=== PATIENT | female | born 1950 | race Caucasian/White ===

== ENCOUNTER 2018-08-13 05:49 | Emergency (ER) | payer MEDICARE, BC ==
[~2018-08-13] VITALS: Ht 157.5 cm; Wt 60.0 kg
[~2018-08-13 05:49] MED LIST: ALPR-304 PO; FISH OIL; HYDR12.5 PO; MULT-785 PO; VAL2T PO; VITAMIN D 3
[2018-08-13 06:41] LABS: CLARITY,URINE SLIGHTLY CLOUDY (Clear); COLOR,URINE YELLOW (Yellow); GLUCOSE, URINE NEGATIVE (Neg); KETONES,URINE NEGATIVE (Neg); LEUKOCYTE ESTERASE ,URINE NEGATIVE (Neg); NITRITES, URINE NEGATIVE (Neg); OCCULT BLOOD,URINE MODERATE (Neg); PH,URINE 6.5 (4.8-8.0); PROTEIN,URINE TRACE mg/dl (Neg); UROBILINOGEN,URINE 0.2 E.U/dL (0.2-1.0)
[2018-08-13 06:47] LABS: UA COLLECTION TYPE CLN CATCH MIDSTREAM
[2018-08-13 06:48] LABS: AMORPHOUS URATES 1+; BACTERIA,URINE NONE SEEN /HPF (Neg); MUCUS STRANDS MODERATE /LPF (Neg); RBC,URINE 0-2 /HPF (0-2); SQUAMOUS EPITHELIAL CELL,UR FEW /LPF (FEW); WBC,URINE 0-4 /HPF (0-4)
[2018-08-13 07:02] LABS: BASOPHILS % (AUTO) 0.3 % (0-1); EOSINOPHILS # (AUTO) 0.1 X10'3 (0-0.9); EOSINOPHILS % (AUTO) 0.6 % (0-6); HEMATOCRIT 43.5 % (35.0-45.0); HEMOGLOBIN 14.7 g/dl (12.0-16.0); LYMPHOCYTES # (AUTO) 1.6 X10'3 (1.1-4.8); LYMPHOCYTES % (AUTO) 14.4 % (21-51); MEAN CORPUSCULAR HEMOGLOBIN 32.1 PG (27.0-31.0); MEAN CORPUSCULAR HGB CONC 33.8 g/dL (33.0-36.5); MEAN CORPUSCULAR VOLUME 94.9 FL (78-98); MEAN PLATELET VOLUME 8.5 FL (7.4-10.4); MONOCYTES # (AUTO) 0.5 X10'3 (0-0.9); MONOCYTES % (AUTO) 4.4 % (2-12); NEUTROPHILS % (AUTO) 80.3 % (42-75); PLATELET COUNT 243 X10'3 (140-440); RED BLOOD COUNT 4.58 X10'6 (4.20-5.60); RED CELL DISTRIBUTION WIDTH 14.5 % (11.5-14.5); WHITE BLOOD COUNT 11.2 X10'3 (4.5-11.0)
[2018-08-13 07:08] LABS: ALANINE AMINOTRANSFERASE 38 U/L (12-78); ALBUMIN 4.4 G/DL (3.4-5.0); ALBUMIN/GLOBULIN RATIO 1.2 (1.1-1.5); ALKALINE PHOSPHATASE 65 IU/L (46-116); ANION GAP 10 (8-16); ASPARTATE AMINO TRANSFERASE 32 U/L (10-37); BILIRUBIN,TOTAL 1.6 MG/DL (0.1-1.0); BLOOD UREA NITROGEN 18 MG/DL (7-18); BUN/CREATININE RATIO 22.8 (6.6-38.0); CALCIUM 9.5 MG/DL (8.5-10.1); CHLORIDE 103 MMOL/L (99-107); CREATININE 0.79 MG/DL (0.40-0.90); GLUCOSE 146 MG/DL (70-104); LIPASE 179 U/L (73-393); POTASSIUM 3.7 MMOL/L (3.5-5.1); SODIUM 140 MMOL/L (135-145); TOTAL CARBON DIOXIDE 26.9 MMOL/L (24-32); eGFR 73 ML/MIN
[2018-08-13] MEDS: diatr meglu/diatrizoate 30ml oral sol.-(3 dose) bottle PO SCH ×3 (09:03→10:10)
[2018-08-13] MEDS ORDERED: iohexol 300mg/ml 100ml inj. ONE (10:30)
--- NOTE | 2018-08-13 10:59 | NUR ---
PT. GOING TO CT VIA W/C WITH OPERATIONS SECTION MANAGER
--- NOTE | 2018-08-13 11:30 | NUR ---
PT. BACK FROM CT WITH MOVEMENT THERAPIST
[2018-08-13] MEDS ORDERED: GLUC-219 PO (12:31)
[2018-08-13] MEDS ORDERED: VIT-11 PO (12:35)
[2018-08-13] MEDS ORDERED: THIO300C PO (12:35)
[2018-08-13] MEDS ORDERED: CALCIUM PO (12:35)
[2018-08-13] MEDS ORDERED: [UNRECOGNIZED DRUG - OTHER] (12:35)
[2018-08-13] MEDS ORDERED: RESV1TAB2 PO (12:35)
[2018-08-13] MEDS ORDERED: PROM12.512 PO (14:30)
[2018-08-13 15:07] VITALS: BP 113/66
== END 2018-08-13 15:09 | disposition home or self-care (01) ==
LOC: ER 06:03
DX: K56.7 Ileus, unspecified (principal); R11.2 Nausea with vomiting, unspecified; Z88.1 Allergy status to other antibiotic agents; Z79.899 Other long term (current) drug therapy; Z98.890 Other specified postprocedural states
CPT/HCPCS: 36415; 74018; 74177; 80053; 81001; 82948; 83690; 85025; 85610; 99284; Q9963; Q9967

== ENCOUNTER 2019-02-26 11:15 | Day surgery (SDC) | payer MEDICARE, BC ==
[2019-02-23 15:32] LABS: BASOPHILS % (AUTO) 0.5 % (0-1); EOSINOPHILS # (AUTO) 0.1 X10'3 (0-0.9); EOSINOPHILS % (AUTO) 0.8 % (0-6); LYMPHOCYTES # (AUTO) 1.5 X10'3 (1.1-4.8); LYMPHOCYTES % (AUTO) 21.4 % (21-51); MEAN CORPUSCULAR HEMOGLOBIN 31.1 PG (27.0-31.0); MEAN CORPUSCULAR HGB CONC 33.3 g/dL (33.0-36.5); MEAN CORPUSCULAR VOLUME 93.5 FL (78-98); MEAN PLATELET VOLUME 7.7 FL (7.4-10.4); MONOCYTES # (AUTO) 0.5 X10'3 (0-0.9); MONOCYTES % (AUTO) 6.6 % (2-12); NEUTROPHILS # (AUTO) 4.9 X10'3 (1.8-7.7); NEUTROPHILS % (AUTO) 70.7 % (42-75); PRE OP HEMATOCRIT 37.2 % (35.0-45.0); PRE OP HEMOGLOBIN 12.4 g/dL (12.0-16.0); PRE OP PLATELET COUNT 251 X10'3 (140-440); RED BLOOD COUNT 3.98 X10'6 (4.20-5.60); RED CELL DISTRIBUTION WIDTH 15.5 % (11.5-14.5)
[2019-02-23 15:48] LABS: ALBUMIN 3.8 G/DL (3.4-5.0); ALBUMIN/GLOBULIN RATIO 1.1 (1.1-1.5); ALKALINE PHOSPHATASE 79 IU/L (46-116); BLOOD UREA NITROGEN 16 MG/DL (7-18); BUN/CREATININE RATIO 16.3 (6.6-38.0); CALCIUM 8.9 MG/DL (8.5-10.1); CHLORIDE 105 MMOL/L (99-107); CREATININE 0.98 MG/DL (0.40-0.90); PRE OP ALT 34 U/L (30-65); PRE OP ANION GAP 5 (8-16); PRE OP AST 18 U/L (10-37); PRE OP BILIRUB, TOTAL 0.6 MG/DL (0.0-1.0); PRE OP GLUCOSE 104 MG/DL (70-104); PRE OP POTASSIUM 3.5 MMOL/L (3.4-5.1); PRE OP SODIUM 143 MMOL/L (135-145); TOTAL PROTEIN 7.4 G/DL (6.4-8.2); eGFR 57 ML/MIN
[~2019-02-26] VITALS: Ht 157.5 cm; Wt 57.5 kg
[~2019-02-26 11:15] MED LIST changes: -ALPR-304 PO; +CALCIUM PO; +DOCU100C41 PO; -FISH OIL; +GABA-532 PO; +GLUC-219 PO; +OXYC-145 PO; +ROPIVAcaine 0.5% (5mg/ml) 30ml vial ONE; -VAL2T PO; +VIT-11 PO; -VITAMIN D 3; +cloNIDine hcl/PF 100mcg/ml inj ONE; +epiNEPHrine 1 mg/ml inj ONE; +famotidine 10mg tablet PO ONE; +ketorolac trometh. 30mg/ml inj. ONE; +ringers solution, lacted 1,000 ML IV SCH; +vancomycin 1,000mg inj ONE
[2019-02-26 12:17] VITALS: BP 164/106
[2019-02-26] MEDS ORDERED: ROPIVAcaine 0.5% (5mg/ml) 30ml vial ONE (13:43)
[2019-02-26] MEDS ORDERED: fentaNYL/PF 50MCG/1 ML 2ML syringe ONE (13:45)
[2019-02-26] MEDS ORDERED: ringers solution, lacted 1,000 ML IV SCH (13:51)
[2019-02-26] MEDS ORDERED: ondansetron/PF 4mg/2ml inj IV PRN (13:55)
[2019-02-26] MEDS ORDERED: labetalol 20mg/4ml (5mg/ml) syringe IV PRN (13:55)
[2019-02-26] MEDS ORDERED: morphine 4 MG/ML inj SYRINge IV PRN ×2 (13:55)
[2019-02-26] MEDS ORDERED: fentaNYL/PF 50MCG/1 ML 2ML syringe IV PRN ×2 (13:55)
[2019-02-26] MEDS ORDERED: hydrALAZINE 20mg/ml inj. IV PRN (13:55)
[2019-02-26] MEDS ORDERED: propofol inj 20 ML IV ONE (14:46)
[2019-02-26] MEDS ORDERED: LIDOcaine 2% (20mg/ml) 5ml vial ONE (14:46)
[2019-02-26 14:55] VITALS: BP 120/76
--- NOTE | 2019-02-26 14:55 | NUR ---
ADMITTED TO PACU FROM OR ACCOMPANIED BY ANESTHESIA. INTIAL PHYSICAL ASSESSMENT DONE AND RECORDED. REPORT RECEIVED FROM ANESTHESIA.
[2019-02-26] MEDS ORDERED: oxyCODONE/APAP 5-325mg tablet PO ONE (15:15)
--- NOTE | 2019-02-26 16:00 | NUR ---
DISCHARGE CRITERIA MET, DISCHARGE INSTRUCTIONS GIVEN, DEMONSTRATES VERBAL UNDERSTANDING. DISCHARGED HOME IN GOOD CONDITION.
== END 2019-02-26 16:00 | disposition home or self-care (01) ==
LOC: PAS 11:15
PROVIDERS: ATTEND Orthopaedic Surgery
DX: T84.82XA Fibrosis due to internal orthopedic prosthetic devices, implants and grafts, initial encounter (principal); I10 Essential (primary) hypertension; G89.18 Other acute postprocedural pain; M17.11 Unilateral primary osteoarthritis, right knee; M19.071 Primary osteoarthritis, right ankle and foot; Z88.8 Allergy status to other drugs, medicaments and biological substances; Z79.899 Other long term (current) drug therapy; Z90.710 Acquired absence of both cervix and uterus; Z98.890 Other specified postprocedural states; Z72.89 Other problems related to lifestyle; Y83.8 Other surgical procedures as the cause of abnormal reaction of the patient, or of later complication, without mention of misadventure at the time of the procedure; Y92.89 Other specified places as the place of occurrence of the external cause
CPT/HCPCS: 27570; 36415; 64447; 80053; 82948; 85025; 87081; J0171; J0735; J1885; J2001; J2270; J2704; J3010; J3370; A4618; J2795; J7120

== ENCOUNTER 2022-10-05 15:20 | Emergency (ER) | payer MEDICARE, BC ==
[~2022-10-05] VITALS: Ht 157.5 cm; Wt 60.0 kg
[~2022-10-05 15:20] MED LIST changes: -ROPIVAcaine 0.5% (5mg/ml) 30ml vial ONE; -cloNIDine hcl/PF 100mcg/ml inj ONE; -epiNEPHrine 1 mg/ml inj ONE; -famotidine 10mg tablet PO ONE; -ketorolac trometh. 30mg/ml inj. ONE; -ringers solution, lacted 1,000 ML IV SCH; -vancomycin 1,000mg inj ONE
[2022-10-05 16:41] VITALS: BP 148/95; PULSE 92; RESP 18; TEMP 98.1; O2SAT 99
[2022-10-05 17:58] LABS: CLARITY,URINE CLOUDY (Clear); COLOR,URINE YELLOW (Yellow); GLUCOSE, URINE NEGATIVE (Neg); KETONES,URINE 40 mg/dl (Neg); LEUKOCYTE ESTERASE ,URINE NEGATIVE (Neg); NITRITES, URINE NEGATIVE (Neg); OCCULT BLOOD,URINE SMALL (Neg); PH,URINE 7.5 (4.8-8.0); PROTEIN,URINE TRACE mg/dl (Neg); UROBILINOGEN,URINE 0.2 E.U/dL (0.2-1.0)
[2022-10-05 18:17] LABS: UA COLLECTION TYPE CLN CATCH MIDSTREAM
[2022-10-05 18:21] LABS: BASOPHILS % (AUTO) 0.2 % (0-1); EOSINOPHILS % (AUTO) 0.1 % (0-6); HEMATOCRIT 42.9 % (35.0-45.0); HEMOGLOBIN 14.6 g/dl (12.0-16.0); LYMPHOCYTES # (AUTO) 0.7 X10'3 (1.1-4.8); LYMPHOCYTES % (AUTO) 7.2 % (21-51); MEAN CORPUSCULAR HEMOGLOBIN 31.9 PG (27.0-31.0); MEAN CORPUSCULAR VOLUME 93.6 FL (78-98); MEAN PLATELET VOLUME 8.6 FL (7.4-10.4); MONOCYTES # (AUTO) 0.2 X10'3 (0-0.9); MONOCYTES % (AUTO) 1.6 % (2-12); NEUTROPHILS # (AUTO) 9.3 X10'3 (1.8-7.7); NEUTROPHILS % (AUTO) 90.9 % (42-75); PLATELET COUNT 228 X10'3 (140-440); RED BLOOD COUNT 4.58 X10'6 (4.20-5.60); WHITE BLOOD COUNT 10.2 X10'3 (4.5-11.0)
[2022-10-05 18:33] LABS: ALANINE AMINOTRANSFERASE 34 U/L (12-78); ALBUMIN 4.7 G/DL (3.4-5.0); ALBUMIN/GLOBULIN RATIO 1.3 (1.1-1.5); ALKALINE PHOSPHATASE 69 IU/L (46-116); ANION GAP 12 (8-16); ASPARTATE AMINO TRANSFERASE 26 U/L (10-37); BILIRUBIN,TOTAL 1.8 MG/DL (0.1-1.0); BLOOD UREA NITROGEN 21 MG/DL (7-18); BUN/CREATININE RATIO 28.8 (10.0-20.0); CALCIUM 9.8 MG/DL (8.5-10.1); CHLORIDE 101 MMOL/L (99-107); CREATININE 0.73 MG/DL (0.40-0.90); GLUCOSE 156 MG/DL (70-104); LIPASE 88 U/L (73-393); POTASSIUM 3.6 MMOL/L (3.5-5.1); SODIUM 143 MMOL/L (135-145); TOTAL CARBON DIOXIDE 30.1 MMOL/L (24-32); TOTAL PROTEIN 8.2 G/DL (6.4-8.2); eGFR 79 ML/MIN
[2022-10-05 18:49] LABS: WBC,URINE 0-4 /HPF (0-4)
[2022-10-05 18:50] LABS: AMORPHOUS PHOSPHATES 4+; BACTERIA,URINE 1+ /HPF (Neg); MUCUS STRANDS FEW /LPF (Neg); SQUAMOUS EPITHELIAL CELL,UR NONE SEEN /LPF (FEW)
== END 2022-10-05 22:08 | disposition left against medical advice (07) ==
LOC: ER 15:21
DX: R10.9 Unspecified abdominal pain (principal); R11.10 Vomiting, unspecified; Z53.21 Procedure and treatment not carried out due to patient leaving prior to being seen by health care provider
CPT/HCPCS: 36415; 80053; 81001; 83690; 85025; 99281

== ENCOUNTER 2023-11-22 09:43 | Outpatient (CLI) | payer MEDICARE, BC | END 2023-11-22 23:59 | disposition home or self-care (01) | LOC: MRI02 09:43 | PROVIDERS: ATTEND Internal Medicine | DX: M17.12 Unilateral primary osteoarthritis, left knee (principal); M25.462 Effusion, left knee; M67.462 Ganglion, left knee; M23.300 Other meniscus derangements, unspecified lateral meniscus, right knee; M25.562 Pain in left knee | CPT/HCPCS: 73721 ==